=== PATIENT | male | born 1995 | race Caucasian/White ===

== ENCOUNTER 2017-12-31 11:54 | Emergency (ER) | payer SELFPAY ==
[~2017-12-31] VITALS: Ht 172.7 cm; Wt 70.3 kg
[2017-12-31] MEDS ORDERED: IBUPROFEN 600 MG TAB PO STA (12:07)
[2017-12-31] MEDS ORDERED: ALBUTEROL/IPRATROPIUM 3 ML NEB NEB ONE (12:15)
[2017-12-31] MEDS ORDERED: PREDNISONE 20 MG TAB PO ONE (12:15)
--- NOTE | 2017-12-31 12:37 | Diagnostic Imaging Report ---
PROCEDURE: Frontal and lateral views of the chest. COMPARISON: None. INDICATIONS: COUGH, FEVER, WEAKNESS FINDINGS: Lines/tubes: None. Lungs: The lungs are well inflated and clear. There is no evidence of pneumonia or pulmonary edema. Pleura: There is no pleural effusion or pneumothorax. Heart and mediastinum: The heart and the mediastinum are normal. Bones: No acute bony abnormality. IMPRESSION: No acute cardiopulmonary disease. Dictated by: Joshua Meneses M.D. on 12/31/2017 at 12:37 Electronically approved by: Joshua Meneses M.D. on 12/31/2017 at 12:37
[2017-12-31 15:10] VITALS: BP 121/79
== END 2017-12-31 15:08 | disposition home or self-care (01) ==
LOC: ER 11:54
DX: R50.9 Fever, unspecified (principal); R05 Cough; J10.1 Influenza due to other identified influenza virus with other respiratory manifestations
CPT/HCPCS: 71046; 94640; 99283